=== PATIENT | female | born 1990 | race Caucasian/White ===

== ENCOUNTER 2019-10-18 13:18 | Emergency (ER) | payer OTHER, MEDICAID ==
[~2019-10-18] VITALS: Ht 167.6 cm; Wt 64.0 kg
[~2019-10-18 13:18] MED LIST: ACETAMINOPHEN-1 EAC1 PO; ADDERALL 10 MG10 MG; AMOXICILLIN 50500 MG PO; AZITHROMYCIN 2250 MG PO; BLEPH-105 ML OPHTHALMIC; CEPHALEXIN 500500 M3 PO; CIPRO500 MG PO; DIFLUCAN150 M1 PO; HYDROCODON-ACE1 EAC7 PO; HYDROCODONE-AP1 EAC6; HYDROCODONE-AP1 EAC6 PO; HYDROCODONE-APA1 TA1 PO; IBUPROFEN 800800 M1 PO; LIDOCAINE VISC100 M1 SWISH&SPIT; MEDROLDOSEPACK PO; MIRALAX17 GM PO; NAPROSYN500 MG PO; NOHOMEMEDICATIONS; NORCO 5-325 TA1 EACH PO; ORTHO TRI-CYCL1 EACH PO; PAIN MED; PENICILLIN V P500 MG PO; POLYMYXIN B/TMP10 ML OP; PREDNISONE 20 M20 M1 PO; PROAIR HFA8.5 GM INH; PROMETHAZINE D480 ML PO; PYRIDIUM100 M1 PO; SPRINTEC1 EACH PO; TESSALON PERLE100 MG PO; TORADOL 10 MG T10 MG PO; ULTRAM 50MG TAB50 MG PO
[2019-10-18] MEDS ORDERED: ASPIR-TRIN325 MG PO (13:55)
[2019-10-18] MEDS ORDERED: BIRTH CONTROL (13:55)
[2019-10-18] MEDS ORDERED: NORCO 5-325 TA1 EAC1 PO (14:29)
[2019-10-18] MEDS ORDERED: AUGMENTIN 875-1 EACH PO (14:29)
[2019-10-18] MEDS ORDERED: IBUPROFEN 800800 M1 PO (14:29)
[2019-10-18 14:41] VITALS: BP 104/74
== END 2019-10-18 14:42 | disposition home or self-care (01) ==
LOC: M.ERS 13:18
DX: H72.92 Unspecified perforation of tympanic membrane, left ear (principal); Z98.890 Other specified postprocedural states

== ENCOUNTER 2020-10-03 14:24 | Emergency (ER) | payer OTHER, MEDICAID ==
[~2020-10-03] VITALS: Ht 170.2 cm; Wt 68.0 kg
[~2020-10-03 14:24] MED LIST changes: +ASPIR-TRIN325 MG PO; +AUGMENTIN 875-1 EACH PO; +BIRTH CONTROL; +NORCO 5-325 TA1 EAC1 PO
[2020-10-03] MEDS ORDERED: AMOXICILLIN 50500 MG PO (14:33)
[2020-10-03 15:07] LABS: ABSOLUTE EOSINOPHILS 0.2 thou/uL (0.0-0.7); ABSOLUTE LYMPHOCYTES 1.6 thou/uL (0.8-5.3); ABSOLUTE MONOCYTES 0.6 thou/uL (0.0-1.2); ABSOLUTE NEUTROPHILS 5.4 thou/uL (1.6-8.1); BASOPHILS 0.3 %; EOSINOPHILS 2.4 %; HEMATOCRIT 37.3 % (37.0-47.0); HEMOGLOBIN 12.5 gm/dL (12.0-15.0); LYMPHOCYTES 21.1 %; MCH 31.9 pg (26.0-34.0); MCHC 33.6 g/dL (28.0-37.0); MONOCYTES 7.3 %; MPV 8.5 fl. (7.2-11.1); NUCLEATED RBCS 0 /100WBC; PLATELET COUNT* 184 thou/uL (150-400); POLYS 68.9 %; RBC 3.92 mil/uL (4.20-5.00); RDW-CV 12.7 % (10.5-14.5); WBC 7.8 thou/uL (4.0-11.0)
[2020-10-03 15:12] LABS: CALCIUM 8.5 mg/dL (8.5-10.1); CREATININE 0.7 mg/dL (0.6-1.3); POTASSIUM 3.8 mmol/L (3.5-5.1)
[2020-10-03 15:17] LABS: ALBUMIN 3.6 g/dL (3.4-5.0); TOTAL BILIRUBIN 0.2 mg/dL (<0.1-1.0); TOTAL PROTEIN 7.2 g/dL (6.4-8.2)
[2020-10-03] MEDS ORDERED: AUGMENTIN 875-1 EACH PO (16:29)
[2020-10-03] MEDS ORDERED: NORCO 5-325 TA1 EAC2 PO (16:29)
[2020-10-03] MEDS ORDERED: IBU600 MG PO (16:29)
[2020-10-03] MEDS ORDERED: CIPRODEX OTIC7.5 ML OTIC (16:29)
[2020-10-03] MEDS ORDERED: PREDNISONE 10 M10 MG PO (16:57)
[2020-10-03 17:00] VITALS: BP 111/67
== END 2020-10-03 17:01 | disposition home or self-care (01) ==
LOC: M.ERS 14:24
PROVIDERS: Physician Assistant
DX: H60.92 Unspecified otitis externa, left ear (principal); H66.92 Otitis media, unspecified, left ear; Z98.890 Other specified postprocedural states